=== PATIENT | female | born 1970 | race Caucasian/White ===

== ENCOUNTER 2020-12-12 16:07 | Outpatient (REF) | payer BC, SELFPAY ==
[2020-12-14 10:51] LABS: COVID-19 RT-PCR UVMMC Result Negative (Negative)
== END 2020-12-12 16:08 | disposition home or self-care (01) ==
LOC: NCHCN 16:07
PROVIDERS: Visit Provider Internal Medicine
DX: Z20.822 Contact with and (suspected) exposure to COVID-19 (principal)
CPT/HCPCS: U0003